=== PATIENT | female | born 1970 | race Caucasian/White ===

== ENCOUNTER → 2023-04-24 | Day surgery (SDC) | payer OTHER ==
[~2023-04-24] MED LIST: CEFOXITIN SODIUM 1 GM/VIAL ONE; FENTANYL CITR 100 MCG/2 ML ONE; HYDROCODONE/APAP 5/325 MG TAB ONE; KETOROLAC 30 MG/ML INJ ONE; LIDOCAINE 2% MPF 5 ML VIAL ONE; MIDAZOLAM HCL 2 MG/2 ML INJ ONE; ONDANSETRON 4 MG/2 ML VIAL ONE; ROCURONIUM 50 MG/5 ML VIAL IV ONE; Ringers Lactate 1,000 ML IV ONE; dexAMETHasone 4 MG/ML VIAL ONE; propofoL 200 MG/20 ML VIAL IV ONE
--- NOTE | 2023-04-24 07:52 | RAD REPORT ---
EXAM DESCRIPTION: RAD - Chest Pa And Lat (2 Views) - 04/24/2023 7:43 am CLINICAL HISTORY: pre-op. Hypertension COMPARISON: No comparisons TECHNIQUE: PA and lateral views of the chest were obtained. FINDINGS: The lungs are clear. Heart size is normal and central vasculature is within normal limits. No pleural effusion or pneumothorax seen. No acute bony finding noted. IMPRESSION: No acute cardiopulmonary process.
[2023-04-24 08:06] LABS: Absolute Lymphocytes (CBC) 2.5 K/uL (0.7-4.9); Hematocrit 38.7 % (36.0-45.0); MCV 85.2 fL (80-100); Platelets 197 thou/uL (152-406); RBC Red Blood Cell Count 4.54 M/uL (3.86-4.86)
[2023-04-24 08:23] LABS: Albumin 3.9 g/dL (3.4-5.0); Bilirubin Direct 0.2 mg/dL (0-0.2); Bilirubin Indirect, Calculated 0.4 mg/dL (0.2-0.8); Bilirubin Total 0.6 mg/dL (0.2-1.0); Potassium 3.4 mEq/L (3.5-5.1); Protein, Total 7.2 g/dL (6.4-8.2)
--- NOTE | 2023-04-24 10:12 | P.BOP ---
Preoperative diagnosis: sympt. Cholelithiasis, acute cholecystitis, Choledocholithiasis, s/p ERCP Postoperative diagnosis: same Primary procedure: Laparoscopic cholecystectomy Manager [employer]: SEAN WEIR ([employer]ING [employer]) Estimated blood loss: <10cc Specimen: gb Findings: as above Anesthesia: General Complications: None Drain(s): JOSIAH drain Transferred to: Recovery Room Condition: Good
[2023-04-24 10:38] VITALS: O2SAT 100
[2023-04-24] MEDS: HYDROMORPHONE HCL 1 MG/ML INJ ONE ×2 (10:42→10:47)
[2023-04-24 11:40] VITALS: TEMP 97.7
--- NOTE | 2023-04-24 13:03 | EKG ---
Test Date: 2023-04-24 Test Time: 07:49:26 Wool Classer: MEASUREMENT RESULTS: Intervals: Rate: 80 TN: 132 QRSD: 86 QT: 388 QTc: 447 [place]: P: 63 TN: 132 QRS: 48 T: 58 INTERPRETIVE STATEMENTS: Normal sinus rhythm with sinus arrhythmia Normal ECG No previous ECG available for comparison Electronically Signed On 04-24-23 13:02:41 CDT by Zachariah Reyes
[2023-04-24 13:35] VITALS: BP 117/69
== END | disposition home or self-care (01) ==
LOC: OR 07:21
PROVIDERS: ATTEND Surgery
PROC: 0FT44ZZ Resection of Gallbladder, Percutaneous Endoscopic Approach (ICD-10-PCS; principal; 2023-04-24 09:15)
DX: K80.10 Calculus of gallbladder with chronic cholecystitis without obstruction (principal)
CPT/HCPCS: 93005; 85025; 80048; 36415; 80076; 88304; 83690; 71046; 47562; J2704; J1100; J2001; J2250; J3010; J1170; J0694; J2405 ×2; J7120